=== PATIENT | female | born 1980 | race Caucasian/White ===

== ENCOUNTER 2024-02-09 10:09 | Emergency (ER) | payer OTHER, MEDICAID ==
[~2024-02-09] VITALS: Ht 167.6 cm; Wt 64.8 kg
[2024-02-09 10:38] LABS: BILIRUBIN,URINE NEGATIVE (Neg); CLARITY,URINE SLIGHTLY CLOUDY (Clear); COLOR,URINE YELLOW (Yellow); GLUCOSE, URINE NEGATIVE (Neg); KETONES,URINE NEGATIVE (Neg); LEUKOCYTE ESTERASE ,URINE NEGATIVE (Neg); NITRITES, URINE NEGATIVE (Neg); OCCULT BLOOD,URINE NEGATIVE (Neg); PROTEIN,URINE NEGATIVE (Neg); UA COLLECTION TYPE CLN CATCH MIDSTREAM; URINE HCG NEGATIVE (NEG); UROBILINOGEN,URINE 0.2 E.U/dL (0.2-1.0)
[2024-02-09 10:41] LABS: BASOPHILS # (AUTO) 0.1 X10'3 (0-0.2); BASOPHILS % (AUTO) 0.8 % (0-1); EOSINOPHILS # (AUTO) 0.1 X10'3 (0-0.9); EOSINOPHILS % (AUTO) 0.9 % (0-6); HEMATOCRIT 35.8 % (35.0-45.0); HEMOGLOBIN 11.3 g/dl (12.0-16.0); LYMPHOCYTES # (AUTO) 1.8 X10'3 (1.1-4.8); LYMPHOCYTES % (AUTO) 24.3 % (21-51); MEAN CORPUSCULAR HEMOGLOBIN 22.5 PG (27.0-31.0); MEAN CORPUSCULAR HGB CONC 31.4 g/dL (33.0-36.5); MEAN CORPUSCULAR VOLUME 71.5 FL (78-98); MEAN PLATELET VOLUME 8.9 FL (7.4-10.4); MONOCYTES # (AUTO) 0.3 X10'3 (0-0.9); NEUTROPHILS # (AUTO) 5.2 X10'3 (1.8-7.7); PLATELET COUNT 263 X10'3 (140-440); RED BLOOD COUNT 5.01 X10'6 (4.20-5.60); WHITE BLOOD COUNT 7.4 X10'3 (4.5-11.0)
[2024-02-09 10:44] VITALS: PULSE 109
[2024-02-09 10:46] LABS: SQUAMOUS EPITHELIAL CELL,UR MODERATE /LPF (FEW)
[2024-02-09 10:47] LABS: BACTERIA,URINE 2+ /HPF (Neg); RBC,URINE 0-2 /HPF (0-2)
[2024-02-09 10:54] LABS: ANISOCYTOSIS 3+; MICROCYTOSIS 1+; PLATELET ESTIMATE NORMAL
[2024-02-09 10:55] LABS: ELLIPTOCYTES FEW; TEAR DROP CELLS FEW
[2024-02-09 10:58] LABS: ALBUMIN 4.4 G/DL (3.4-5.0); ANION GAP 9 (8-16); BLOOD UREA NITROGEN 13 MG/DL (7-18); BUN/CREATININE RATIO 21.7 (10.0-20.0); CHLORIDE 102 MMOL/L (99-107); GLUCOSE 93 MG/DL (70-104); POTASSIUM 3.6 MMOL/L (3.5-5.1); SODIUM 136 MMOL/L (135-145); TOTAL CARBON DIOXIDE 24.6 MMOL/L (24-32); TOTAL PROTEIN 8.6 G/DL (6.4-8.2); eCRCL 113 ML/MIN; eGFR > 90 ML/MIN
[2024-02-09 10:59] LABS: ALANINE AMINOTRANSFERASE 31 U/L (12-78); ALKALINE PHOSPHATASE 88 IU/L (46-116); AMYLASE 165 U/L (25-115); ASPARTATE AMINO TRANSFERASE 23 U/L (10-37); LIPASE 69 U/L (16-77)
[2024-02-09] MEDS ORDERED: SULF1TAB45 PO (11:19)
[2024-02-09] MEDS: ketorolac trometh. 30mg/ml inj. IM ONE (11:32)
[2024-02-09 11:50] VITALS: BP 114/77; RESP 16; TEMP 98.1; O2SAT 98
== END 2024-02-09 11:55 | disposition home or self-care (01) ==
LOC: ER 10:09
DX: N20.0 Calculus of kidney (principal); N39.0 Urinary tract infection, site not specified; N23 Unspecified renal colic; Z79.2 Long term (current) use of antibiotics
CPT/HCPCS: 80053; 81001; 81025; 82150; 83690; 85008; 85025; 87088; 96372; 99283; J1885